=== PATIENT | male | born 1990 | race African-American/Black ===

== ENCOUNTER 2018-10-31 12:06 | Emergency (ER) | payer OTHER ==
[2018-10-31 12:13] VITALS: BP 136/84
[2018-10-31] MEDS ORDERED: SULFAMETHOXAZOLE/TRIMETHOPRIM 800-160 MG TABLET PO ONE (12:15)
[2018-10-31] MEDS ORDERED: DIPH/PERTUSS(ACELL)/TETANUS VAC/PF 0.5 ML SYR (>=10YO) IM ONE (12:15)
--- NOTE | 2018-10-31 12:17 | ER Document Report ---
ED Medical Screen (RME) - General Chief Complaint: Finger Injury Stated Complaint: RIGHT HAND INJURY Primary Care Provider: HI MCGREGOR MD [Primary Care Provider] - Follow up as needed TRAVEL OUTSIDE OF THE [place] IN LAST 30 DAYS: No - HPI Notes: 10/31/18 12:16 Patient presents with a laceration on the right fifth finger. Bleeding is currently controlled. Last tetanus shot was over 10 years ago. - Related Data Allergies/Adverse Reactions: No Known Allergies Allergy (Verified 10/31/18 12:13) Physical Exam - Vital signs Vitals: Temp Pulse Resp BP Pulse Ox 97.8 F 67 16 136/84 H 99 10/31/18 12:13 10/31/18 12:13 10/31/18 12:13 10/31/18 12:13 10/31/18 12:13 Course - Vital Signs Vital signs: Temp Pulse Resp BP Pulse Ox 97.8 F 67 16 136/84 H 99 10/31/18 12:13 10/31/18 12:13 10/31/18 12:13 10/31/18 12:13 10/31/18 12:13 Doctor's Discharge - Discharge Referrals: HI MCGREGOR MD [Primary Care Provider] - Follow up as needed
--- NOTE | 2018-10-31 13:18 | RADIOLOGY REPORT (SQ) ---
EXAM DESCRIPTION: HAND RIGHT 3 VIEWS COMPLETED DATE/TIME: 10/31/2018 12:48 pm REASON FOR STUDY: Laceration COMPARISON: None. EXAM PARAMETERS: NUMBER OF VIEWS: Three views. TECHNIQUE: AP, lateral and oblique radiographic images acquired of the right hand. LIMITATIONS: None. FINDINGS: MINERALIZATION: Normal. BONES: No acute fracture or dislocation. No worrisome bone lesions. JOINTS: No effusions. SOFT TISSUES: Soft tissue laceration about the medial aspect 5th distal interphalangeal joint. No fo reign body. OTHER: No other significant finding. IMPRESSION: Soft tissue laceration about the medial aspect 5th distal interphalangeal joint. No fra cture or dislocation. No foreign body. TECHNICAL DOCUMENTATION: JOB ID: [id number] [employer]- All Rights Reserved Reading location - IP/workstation name: [email or web address]
[2018-10-31] MEDS ORDERED: LIDOCAINE 1% INJ-PF (10 MG/ML) 30 ML SDV INJ ONE (14:22)
--- NOTE | 2018-10-31 14:39 | ER Document Report ---
HPI - HPI Time Seen by Provider: 10/31/18 14:09 Pain Level: 0 Notes: Patient is a 28-year-old male with no significant past medical history who presents to the emergency department complaining of an injury/laceration to his right fifth digit prior to arrival. Patient was putting luggage on a conveyor belt when his finger got caught by the belt. Patient states that he has kept the finger wrapped since then. He last tetanus was 11 years ago. He has no other concerns or complaints. He is able to move his finger without difficulty. No drug allergies. Denies any headache, fever, URI, sore throat, chest pain, palpitations, syncope, cough, shortness of breath, wheeze, dyspnea, abdominal pain, nausea/vomiting/diarrhea, urinary retention, dysuria, hematuria, loss of control of bowel or bladder, numbness/tingling, muscle paralysis/weakness, or rash. - ROS Systems Reviewed and Negative: Yes All other systems reviewed and negative Past Medical History - Social History Smoking Status: Never Smoker Family History: Reviewed & Not Pertinent Patient has suicidal ideation: No Patient has homicidal ideation: No Renal/ Medical History: Denies: Hx Peritoneal Dialysis Vertical Provider Document - CONSTITUTIONAL Agree With Documented VS: Yes Notes: PHYSICAL EXAMINATION: GENERAL: Well-appearing, well-nourished and in no acute distress. LUNGS: Breath sounds clear to auscultation bilaterally and equal. No wheezes rales or rhonchi. HEART: Regular rate and rhythm without murmurs, rubs, gallops. Musculoskeletal: Rt 5th digit of hand: There is a flap-like laceration noted that is irregular, but superficial. FROM to passive/active. Strength 5+/5. N/V intact distal. Extremities: No cyanosis, clubbing, or edema b/l. Peripheral pulses 2+. Capillary refill less than 3 seconds. NEUROLOGICAL: Normal speech, normal gait. Normal sensory, motor exams PSYCH: Normal mood, normal affect. SKIN: see above. - INFECTION CONTROL TRAVEL OUTSIDE OF THE [place] IN LAST 30 DAYS: No Course - Re-evaluation Re-evalutation: 10/31/18 Patient is an afebrile, well-hydrated, 28-year-old male who presents to the ED with a laceration/injury to the rt 5th finger. Vitals are acceptable without any significant tachycardia, tachypnea, or hypoxia. PE is otherwise unremarkable for any neurovascular compromise, obvious tendon/ligament rupture, obvious fracture/dislocation, septic joint. X-ray was unremarkable for any acute pathology. Wound was thoroughly irrigated and cleansed. Wound edges were approximated appropriately utilizing 5 simple interrupted sutures. Wound dressing was placed and wound instructions reviewed. Patient is nontoxic- appearing. No other labs or imaging warranted at this time based on H&P. I will send him home on augmentin as prophylaxis. Conservative measures otherwise for symptoms. Recheck with your PCM in 3-5 days. Consider consult orthopedics. Return to the ED with any worsening/concerning symptoms otherwise as reviewed in discharge. Patient is in agreement. - Vital Signs Vital signs: Temp Pulse Resp BP Pulse Ox 97.8 F 67 16 136/84 H 99 10/31/18 12:13 10/31/18 12:13 10/31/18 12:13 10/31/18 12:13 10/31/18 12:13 Procedures - Laceration/Wound Repair Right Finger 5th digit Time completed: 14:55 Wound length (cm): 2 Wound's Depth, Shape: Superficial, Flap Laceration pre-procedure: Sterile PPE donned, Sterile drapes applied, Other - chlorhexadine/saline Anesthetic type: 1% Lidocaine Volume Anesthetic (mLs): 6 - digital block Wound explored: Clean, No foreign body removed Irrigated w/ Saline (mLs): 70 Wound Debrided: Minimal Wound Repaired With: Sutures Suture Size/Type: 4:0, Nylon Number of Sutures: 5 Layer Closure?: No Post-procedure wound care: Sterile dressing applied Post-procedure NV exam normal: Yes Complications: No Discharge - Discharge Clinical Impression: Laceration of right little finger Qualifiers: Encounter type: initial encounter Damage to nail status: without damage Foreign body presence: without foreign body Qualified Code(s): S61.216A - Laceration without foreign body of right little finger without damage to nail, initial encounter Condition: Stable Disposition: HOME, SELF-CARE Instructions: Antibiotic Ointment Protection ([facility]), Laceration Care ([facility]), Prophylactic Antibiotic ([facility]), Soap Cleansing ([facility]), Tetanus Immunization Given ([facility]) Additional Instructions: Do not shower or bathe for 24 hours. After 24 hours you may shower but no submersion of the wound under water. Keep the original dressing on the wound for 24 hours unless the drainage soaks through. Change the dressing daily thereafter and keep the knots of the suture material clean from any dried discharge. You may leave the wound open to the air once there is no more discharge. Return to the ED and/or your PCM in 2-3 days for a recheck. Monitor for any signs of worsening pain or redness, purulent drainage, streaks, and/or fever. Return to the ED if noticing any of the above symptoms or as needed. Take medications as directed. Your sutures will need to be removed in 10 days. Prescriptions: Amox Tr/Potassium Clavulanate [Augmentin 875-125 Tablet] 1 tab PO BID #14 tablet Forms: Elevated Blood Pressure, Return to Work Referrals: HI MCGREGOR MD [EM[facility]] - Follow up as needed [facility] [Provider Group] - Follow up as needed
== END 2018-10-31 15:35 | disposition home or self-care (01) ==
LOC: ER 12:06
DX: S61.216A Laceration without foreign body of right little finger without damage to nail, initial encounter (principal); W31.89XA Contact with other specified machinery, initial encounter; Y93.89 Activity, other specified; Y92.520 Airport as the place of occurrence of the external cause; Y99.0 Civilian activity done for income or pay
CPT/HCPCS: 99283; 90471; 73130; 90715; 12001; J3490